=== PATIENT | female | born 1990 | race Caucasian/White ===

== ENCOUNTER → 2016-09-20 | Outpatient (CLI) | payer OTHER ==
[2016-09-20 17:08] LABS: DHEA SO4 197.1 ug/dL (84.8-378.0); FSH 4.5 mIU/mL (.); PROLACTIN 30.4 ng/mL (4.8-23.3)
[2016-09-20 23:06] LABS: HEMOGLOBIN A1C 4.7 % (4.8-5.6)
== END | disposition home or self-care (01) ==
LOC: LAB 10:08
PROVIDERS: ATTEND Obstetrics & Gynecology
DX: N92.6 Irregular menstruation, unspecified (principal)
CPT/HCPCS: 36415; 82627; 83001; 83002; 83036; 83525; 84146; 84402; 84403; 84443